=== PATIENT | female | born 1990 | race African-American/Black ===

== ENCOUNTER 2017-07-10 01:00 | Emergency (ER) | payer SELFPAY ==
[~2017-07-10] VITALS: Ht 160 cm; Wt 91.3 kg
[2017-07-10 01:03] VITALS: BP 149/85; PULSE 70; TEMP 98.1
[2017-07-10] MEDS ORDERED: ATARAX50 MG PO (01:44)
== END 2017-07-10 01:57 | disposition home or self-care (01) ==
LOC: COL.ER 01:00
DX: F41.9 Anxiety disorder, unspecified (principal); F32.9 Major depressive disorder, single episode, unspecified